=== PATIENT | male | born 1995 | race Caucasian/White ===

== ENCOUNTER 2017-03-28 21:22 | Emergency (ER) | payer SELFPAY ==
[~2017-03-28] VITALS: Ht 177.8 cm; Wt 67.4 kg
[~2017-03-28 21:22] MED LIST: CLEO300C2 PO; SULF-154 PO
[2017-03-28 21:36] VITALS: BP 118/68; PULSE 67; RESP 12; TEMP 98; O2SAT 99
[2017-03-28] MEDS ORDERED: VENTAER INH (21:54)
[2017-03-28] MEDS ORDERED: PRED20 PO (21:54)
[2017-03-28] MEDS ORDERED: AZIT250T3 PO (21:54)
--- NOTE | 2017-03-28 22:00 | PD ---
HPI Chief Complaint: Respiratory Symptoms Time Seen by Provider: 21:54 Travel History International Travel<30 days: No Contact w/Intl Traveler<30days: No Traveled to known affect area: No History of Present Illness HPI 21-year-old male presents to emergency Department with 2 week history of intermittent shortness of breath. Patient states no significant fever but has intermittent episodes of feeling like he can't catch his breath. Patient has a history of asthma for which she is an inhaler or nebulizer as a child. Patient currently smokes. Patient has had some upper respiratory symptoms including headaches and occasional cough and sore throat. Patient denies nausea or vomiting. His history of MRSA. PFSH Past Medical History Asthma: Yes Diminished Hearing: No Respiratory: Yes (asthma) Immunizations Current: Yes (UTD) Tetanus Vaccination: Unknown Influenza Vaccination: No ?: Not Past Surgical History Other Surgery: Yes (SKIN GRAFT RIGHT LEG AND RIGHT HAND) Social History Alcohol Use: No Tobacco Use: Yes (1 pack per week) Substance Use: Yes (MARIJUANA) Allergies-Medications (Allergen,Severity, Reaction): Coded Allergies: *MDRO Multi-Drug Resistant Organism (Verified Adverse Reaction, Unknown, ) MRSA finger 06/2015. Reported Meds & Prescriptions Reported Meds & Active Scripts Active Prednisone 20 Mg Tab 20 Mg PO BID Azithromycin 250 Mg Tab 250 Mg PO DIRECTED Take 2 tabs (500 mg) on day 1 then 1 tab daily x 4 days. Ventolin Hfa 18 GM Inh (Albuterol Sulfate) 90 Mcg/Act Aer 2 Puff INH Q4-6H PRN Review of Systems General / Constitutional: No: Fever Eyes: No: Visual changes HENT: Positive: Headaches, Sore Throat, Rhinitis, Rhinorrhea, Congestion, No: Neck Stiffness, Neck Pain, Ear Discharge, Earache Cardiovascular: No: Chest Pain or Discomfort Respiratory: Positive: Cough, Shortness of Breath, No: Wheezing, Sneezing Gastrointestinal: No: Abdominal Pain Genitourinary: No: Dysuria Musculoskeletal: No: Pain Skin: No Rash Neurologic: No: Weakness Psychiatric: No: Depression Endocrine: No: Polydipsia Hematologic/Lymphatic: No: Easy Bruising Physical Exam Narrative GENERAL: Patient appears in no acute distress. SKIN: Warm and dry. Normal color. Normal turgor. HEAD: Atraumatic. Normocephalic. EYES: Pupils equal and round. No scleral icterus. No injection or drainage. ENT: No nasal bleeding or discharge. Mucous membranes pink and moist. Pharynx is somewhat erythematous and injected with cobblestoning noticed with out significant lymphadenopathy or exudate. TMs are clear bilaterally. Patient has mild to moderate tenderness tenderness bilaterally in both frontal and maxillary sinuses. NECK: Trachea midline. Supple and nontender without significant lymphadenopathy. CARDIOVASCULAR: Regular rate and rhythm. RESPIRATORY: No accessory muscle use. Clear to auscultation. Breath sounds equal bilaterally. No obvious wheezes or rales. GASTROINTESTINAL: Abdomen soft, non-tender, nondistended. Hepatic and splenic margins not palpable. MUSCULOSKELETAL: Extremities without clubbing, cyanosis, or edema. No obvious deformities. NEUROLOGICAL: Awake and alert. No obvious cranial nerve deficits. Motor grossly within normal limits. Five out of 5 muscle strength in the arms and legs. Normal speech. PSYCHIATRIC: Appropriate mood and affect; insight and judgment normal. Data Data Last Documented VS Vital Signs Date Time Temp Pulse Resp B/P Pulse Ox O2 Delivery O2 Flow Rate FiO2 03/28/17 21:36 98.0 67 12 118/68 99 MDM Medical Decision Making Medical Screen Exam Complete: Yes Emergency Medical Condition: Yes Differential Diagnosis Asthma with acute exacerbation. Sinusitis. Postnasal drip. Cough. Shortness of breath Narrative Course Patient is felt to have sinusitis aggravating his asthma. Patient is given a prescription for albuterol metered-dose inhaler 2 puffs every 4-6 hours when necessary. Patient is given azithromycin Dosepak as directed. Patient is placed on prednisone 20 mg twice a day 5 days. Recommend the patient quit smoking immediately. Work note is given. Patient follow-up with local primary care physician or return to the ED if worsening symptoms develop. Diagnosis Primary Impression: Sinusitis, acute Qualified Code: J01.40 - Acute non-recurrent pansinusitis Additional Impression: Asthma with acute exacerbation in adult Referrals: [facility] Patient Instructions: General Instructions, How to Stop Smoking (ED), How to Use a Metered-Dose Inhaler (ED), Sinusitis (ED) Departure Forms: Work Release Enter return to work date: March 29, 2017 Additional Instructions: Patient is felt to have sinusitis aggravating his asthma. Patient is given a prescription for albuterol metered-dose inhaler 2 puffs every 4-6 hours when necessary. Patient is given azithromycin Dosepak as directed. Patient is placed on prednisone 20 mg twice a day 5 days. Recommend the patient quit smoking immediately. Work note is given. Patient follow-up with local primary care physician or return to the ED if worsening symptoms develop. Med/Other Pt SpecificInfo: Prescription(s) given Scripts Prednisone 20 Mg Tab20 Mg PO BID #10 TAB Prov:Joseph Amador MD 03/28/17 Azithromycin 250 Mg [id number] Mg PO DIRECTED #6 TAB Take 2 tabs (500 mg) on day 1 then 1 tab daily x 4 days. Prov:Joseph Amador MD 03/28/17 Albuterol 18 GM Inh (Ventolin Hfa 18 GM Inh)90 Mcg/Act Aer2 Puff INH Q4-6H PRN ( SHORTNESS OF BREATH) #1 INHALER Prov:Joseph Amador MD 03/28/17 Disposition: 01 DISCHARGE HOME Condition: Stable [address] Lane March 28, 2017 22:00
== END 2017-03-28 22:12 | disposition home or self-care (01) ==
LOC: PHEFT 21:22
DX: J01.40 Acute pansinusitis, unspecified (principal); J45.901 Unspecified asthma with (acute) exacerbation; F17.210 Nicotine dependence, cigarettes, uncomplicated; F12.10 Cannabis abuse, uncomplicated
CPT/HCPCS: 99283